=== PATIENT | female | born 1955 | race Caucasian/White ===

== ENCOUNTER 2016-12-22 10:09 | Emergency (ER) | payer MEDICAID ==
[2016-12-22] MEDS ORDERED: LISINOPRIL 20 MG TAB PO ONE (11:00)
[2016-12-22 11:16] LABS: ANION GAP 12 mEq/L (8-16); CALCIUM 9.5 mg/dL (8.5-10.4); CARBON DIOXIDE 23 mEq/l (22-31); CHLORIDE 105 mEq/L (97-110); CREATININE 0.6 mg/dL (0.6-1.0); GLOMERULAR FILTRATION RATE > 60; GLUCOSE 99 mg/dL (70-100); SODIUM 140 mEq/L (134-144)
[2016-12-22 11:17] LABS: HEMATOCRIT 43.6 % (38.0-47.0); HEMOGLOBIN 15.1 g/dL (12.6-16.3); MEAN CELL HEMOGLOBIN 33.1 pg (27.9-34.1); MEAN CELL HEMOGLOBIN CONCENTR. 34.6 g/dL (32.4-36.7); MEAN CELL VOLUME 95.6 fL (81.5-99.8); RED BLOOD CELL COUNT 4.56 10^6/uL (4.18-5.33); RED CELL DISTRIBUTION WIDTH 12.3 % (11.5-15.2)
--- NOTE | 2016-12-22 11:17 | EDPHY ---
H & P Stated Complaint: Elevated B/P since last night. Time Seen by Provider: 12/22/16 10:23 HPI/ROS: CHIEF COMPLAINT: Elevated blood pressure HISTORY OF PRESENT ILLNESS: The patient presents to the ED after she has noted recurrent hypertension. The patient reportedly has been having blood pressure readings in the 190/110 range. She has been having some vague intermittent headache. She currently denies headache. The patient has had some symptoms of intermittent epistaxis and reportedly a remote history of unexplained subconjunctival hemorrhages. The patient had been on medications for hypertension in the past. She stop taking these medications approximately 4 years ago. She has not seen a primary care provider in 2 years. She reports that she symptoms are exacerbated by fair amount of stress she has only under. The patient denies any chest pain or shortness of breath. The patient had been on hydrochlorothiazide and another unknown medication for management of her hypertension in the past. The patient denies any focal numbness or weakness. She has no complaints of shortness of breath. She denies any acute medical complaints currently. REVIEW OF SYSTEMS: A comprehensive 10 point review of systems is otherwise negative aside from elements mentioned in the history of present illness. Source: Patient Exam Limitations: No limitations - Personal History Current Tetanus Diphtheria and Acellular Pertussis (TDAP): Yes - Medical/Surgical History Hx Asthma: No Hx Chronic Respiratory Disease: No Hx Diabetes: No Hx Cardiac Disease: No Hx Renal Disease: No Hx Cirrhosis: No Hx Alcoholism: No Hx HIV/AIDS: No Hx Splenectomy or Spleen Trauma: No Other PMH: HTN. - Social History Smoking Status: Never smoked - Physical Exam Exam: General Appearance: Alert, no distress Eyes: Pupils equal and round no pallor or injection ENT, Mouth: Mucous membranes moist Respiratory: There are no retractions, lungs are clear to auscultation Cardiovascular: Regular rate and rhythm Gastrointestinal: Abdomen is soft and nontender, no masses, bowel sounds normal Neurological: A&O, normal motor function, normal sensory exam, normal cranial nerves Skin: Warm and dry, no rashes Musculoskeletal: Neck is supple nontender Extremities: symmetrical, full range of motion Constitutional: Initial Vital Signs Temperature (C) 36.6 C 12/22/16 10:13 Heart Rate 76 12/22/16 10:13 Respiratory Rate 18 12/22/16 10:13 Blood Pressure 194/114 H 12/22/16 10:13 O2 Sat (%) 99 12/22/16 10:13 O2 Delivery Mode Room Air Allergies/Adverse Reactions: No Known Allergies Allergy (Unverified 12/22/16 10:16) Home Medications: Medication Instructions Recorded Hydrochlorothiazide [HCTZ (*)] 25 mg PO DAILY #30 tab 12/22/16 Medical Decision Making ED Course/Re-evaluation: The patient presents to the ED with hypertension. The patient had been on hydrochlorothiazide before in the past. She is noted to be neurologically intact without evidence of hypertensive emergency. The patient's laboratory studies demonstrate no evidence of renal dysfunction. The patient was given 25 mg of hydrochlorothiazide. She was monitored in the emergency department. At 1 :00 p.m. her blood pressure is currently 160/80. At this point time I do feel the patient can be restarted on hydrochlorothiazide and have close follow up with primary care. She has been referred to our on-call primary care provider. The patient is advised to return to the ED for the development of any chest pain, shortness of breath, severe headache, acute neurologic symptoms or other concerns. Differential Diagnosis: Differential diagnosis considered includes renal failure, hypertensive emergency , hypertensive urgency, intracranial hemorrhage, primary hypertension - Data Points Laboratory Results: Laboratory Results 12/22/16 10:30 12/22/16 10:30 12/22/16 12/22/16 10:30 10:30 WBC 8.33 10^3/uL 10^3/uL (3.80-9.50) RBC 4.56 10^6/uL 10^6/uL (4.18-5.33) Hgb 15.1 g/dL g/dL (12.6-16.3) Hct 43.6 % % (38.0-47.0) MCV 95.6 fL fL (81.5-99.8) MCH 33.1 pg pg (27.9-34.1) MCHC 34.6 g/dL g/dL (32.4-36.7) RDW 12.3 % % (11.5-15.2) Plt Count 268 10^3/uL 10^3/uL (150-400) Sodium 140 mEq/L mEq/L (134-144) Potassium 4.0 mEq/L mEq/L (3.5-5.2) Chloride 105 mEq/L mEq/L (97-110) Carbon Dioxide 23 mEq/l mEq/l (22-31) Anion Gap 12 mEq/L mEq/L (8-16) BUN 8 mg/dL mg/dL (7-23) Creatinine 0.6 mg/dL mg/dL (0.6-1.0) Estimated GFR > 60 Glucose 99 mg/dL mg/dL (70-100) Calcium 9.5 mg/dL mg/dL (8.5-10.4) Medications Given: Discontinued Medications Lisinopril (Zestril) 20 mg PO EDNOW ONE Stop: 12/22/16 11:01 Last Admin: 12/22/16 11:11 Dose: 20 mg Departure - Departure Disposition: Home, Routine, Self-Care Clinical Impression: Hypertension Condition: Good Instructions: Hypertension (ED) Additional Instructions: 1. Please return to the emergency department for chest pain, shortness of breath , difficulty breathing, numbness, weakness or other concerns. 2. Please begin hydrochlorothiazide as directed. 3. Please schedule a follow-up appointment with a primary care provider you have been referred to for a blood pressure recheck within the next week. Referrals: Fran Purdy DO [Doctor of Osteopathy] - As per Instructions
[2016-12-22 13:11] VITALS: BP 170/98; PULSE 72; RESP 16; TEMP 98.1; O2SAT 98
== END 2016-12-22 13:09 | disposition home or self-care (01) ==
DX: I10 Essential (primary) hypertension (principal)

== ENCOUNTER → 2018-05-22 | Outpatient (CLI) | payer OTHER | LOC: FIMAGING 13:23 | PROVIDERS: ATTEND Family Medicine | DX: Z12.31 Encounter for screening mammogram for malignant neoplasm of breast (principal) ==